=== PATIENT | male | born 1990 | race Hispanic/Latino ===

== ENCOUNTER 2020-08-04 17:39 | Emergency (ER) | payer SELFPAY ==
--- NOTE | 2020-08-04 20:31 | ER ---
Nurse's Notes [facility] Name: Adilson Duarte Jr Age: 30 yrs Sex: Male : 1990 Arrival Date: 08/04/2020 Time: 17:48 Bed 28 Private MD: Diagnosis: Laceration without foreign body of left hand Presentation: 08/04 17:54 Chief complaint: Patient states: Accidentally had screwdriver penetrate webbing of L ll1 hand between 1st and 2nd digits 20 min [employer]SEM[employer]. Bleeding controlled. Puncture wound L hand. Coronavirus screen: Client denies travel out of the [place] in the last 14 days. At this time, the client does not indicate any symptoms associated with coronavirus-19. Ebola Screen: Patient denies travel to an Ebola-affected area in the 21 days before illness onset. Complicating Factors: There are no complicating factors for this patient. Initial Sepsis Screen: Does the patient meet any 2 criteria? No. Patient's initial sepsis screen is negative. Does the patient have a suspected source of infection? Yes: Skin breakdown/wound. Risk Assessment: Do you want to hurt yourself or someone else? Patient reports no desire to harm self or others. Onset of symptoms was August 04, 2020. 17:54 Method Of Arrival: Ambulatory ll1 17:54 Acuity: NEYMAR 4 ll1 Historical: - Allergies: 17:56 Grass Pollen-[place] Fescue, Standard; ll1 - PMHx: 17:56 None; ll1 - PSHx: 17:56 None; ll1 - Immunization history:: Last tetanus immunization: < 5 years ago Flu vaccine is not up to date. - Social history:: Smoking status: Patient denies any tobacco usage or history of. Screenin:48 Abuse screen: Denies threats or abuse. Nutritional screening: No deficits noted. bb Tuberculosis screening: No symptoms or risk factors identified. Fall Risk None identified. Assessment: 20:46 General: Appears in no apparent distress. Behavior is calm, cooperative. Pain: bb Complains of pain in Left first web space. Neuro: Level of Consciousness is awake, alert, obeys commands, Oriented to person, place, time, Appropriate for age. Respiratory: Respiratory effort is even, unlabored, Respiratory pattern is regular. Derm: Skin is pink, warm \T\ dry. Musculoskeletal: Circulation, motion, and sensation intact. Injury Description: Laceration sustained to Left first web space is clean, not bleeding, 2 sutures intact. 20:47 Reassessment: Patient is alert, oriented x 3, equal unlabored respirations, skin bb warm/dry/pink. pt verbalized understanding of and agrees to plan of care discharge instructions given pt ambulated with steady gait to exit. Vital Signs: 17:54 BP 149 / 96; Pulse 73; Resp 17; Temp 97.9; Pulse Ox 96% ; Weight 74.84 kg; Height 5 ft. ll1 11 in. (180.34 cm); Pain 6/10; 20:47 BP 141 / 93; Pulse 67; Resp 16 S; Temp 98.2(O); Pulse Ox 99% on R/A; bb 17:54 Body Mass Index 23.01 (74.84 kg, 180.34 cm) ll1 ED Course: 17:48 Patient arrived in ED. mr 17:55 Triage completed. ll1 17:56 Arm band placed on. ll1 19:38 [facility]C [facility]. kb 19:38 Gucci Rose MD is Attending Physician. kb 20:48 Assist provider with laceration repair on Left first web space that was 2.5 cm. or less bb using sutures. Set up tray. Performed by Donna HERRERA Dressed with band aid, Patient tolerated well. Patient did not have IV access during this emergency room visit. Dressings: Band aid x 1 Left first web space. 20:49 Patient has correct armband on for positive identification. 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 Exp: bb 08/07/2021. Lot #: [id number]. } Route: IM; Site: left deltoid; 20:51 Follow up: Response: No adverse reaction bb Outcome: 20:30 Discharge ordered by . kb 20:51 Discharged to home ambulatory. bb 20:51 Condition: stable 20:51 Discharge instructions given to patient, Instructed on discharge instructions, follow up and referral plans. wound care, Demonstrated understanding of instructions, follow-up care, wound care. 20:52 Patient left the ED. bb Signatures: Donna Uriarte, SHARON ALAN-Sherice Salinas mr Blossom Holden RN RN bb Elijah Cantor RN RN ll1
--- NOTE | 2020-08-04 20:31 | EDPHYS ---
Physician Documentation [facility] Name: Adilson Duarte Jr Age: 30 yrs Sex: Male : 1990 Arrival Date: 08/04/2020 Time: 17:48 Bed 28 Private MD: ED Physician Gucci Rose HPI: 08/04 20:28 This 30 yrs old Male presents to ER via Ambulatory with complaints of kb Laceration To Hand. 20:28 The patient has a laceration related to: working, occurred at work, and there are no kb complicating factors. The injury was accidental. The laceration(s) is(are) located on the Left first web space. Onset: The symptoms/episode began/occurred just prior to arrival. Associated signs and symptoms: The patient has no apparent associated signs or symptoms. The patient has not experienced similar symptoms in the past. The patient has not recently seen a physician. 20:29 Pt tripped and his hand caught the bench but there was a flathead screwdriver on it and kb it went into his hand. Historical: - Allergies: 17:56 Grass Pollen-[place] Fescue, Standard; ll1 - PMHx: 17:56 None; ll1 - PSHx: 17:56 None; ll1 - Immunization history:: Last tetanus immunization: < 5 years ago Flu vaccine is not up to date. - Social history:: Smoking status: Patient denies any tobacco usage or history of. ROS: 20:28 Constitutional: Negative for fever, chills, and weight loss, MS/Extremity: Negative for kb injury and deformity, Neuro: Negative for headache, weakness, numbness, tingling, and seizure. 20:28 Skin: Positive for laceration(s), of the Left first web space. Exam: 20:28 Constitutional: This is a well developed, well nourished patient who is awake, alert, kb and in no acute distress. Head/Face: Normocephalic, atraumatic. Respiratory: Respirations even and unlabored. No increased work of breathing, no retractions or nasal flaring. MS/ Extremity: Pulses equal, no cyanosis. Neurovascular intact. Full, normal range of motion. Neuro: Awake and alert, GCS 15, oriented to person, place, time, and situation. Moves all extremities. Normal gait. 20:28 Skin: injury, laceration(s), the wound is approximately 1 cm(s), of the Left first web space, that can be described as clean, no foreign body, linear, without bleeding. Vital Signs: 17:54 BP 149 / 96; Pulse 73; Resp 17; Temp 97.9; Pulse Ox 96% ; Weight 74.84 kg; Height 5 ft. ll1 11 in. (180.34 cm); Pain 6/10; 20:47 BP 141 / 93; Pulse 67; Resp 16 S; Temp 98.2(O); Pulse Ox 99% on R/A; bb 17:54 Body Mass Index 23.01 (74.84 kg, 180.34 cm) ll1 Laceration: 20:26 Wound Repair of 1cm ( 0.4in ) subcutaneous laceration to Left first web space. Linear kb shaped.. Distal neuro/vascular/tendon intact. Anesthesia: Wound infiltrated with 1 mls of 1% lidocaine. Wound prep: Moderate cleansing with hibiclenz by me, Wound irrigation with saline by me. Skin closed with 2 4-0 Prolene using interrupted sutures and sterile technique. Dressed with bandaid. Patient tolerated well. MDM: 19:38 Patient medically screened. kb 20:26 Data reviewed: vital signs, nurses notes. Data interpreted: Pulse oximetry: on room air kb is 96 %. Interpretation: normal. Counseling: I had a detailed discussion with the patient and/or guardian regarding: the historical points, exam findings, and any diagnostic results supporting the discharge/admit diagnosis, the need for outpatient follow up, a family practitioner, to return to the emergency department if symptoms worsen or persist or if there are any questions or concerns that arise at home. 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 Exp: bb 08/07/2021. Lot #: [id number]. } Route: IM; Site: left deltoid; 20:51 Follow up: Response: No adverse reaction bb Disposition: 22:59 Co-signature as Attending Physician, Gucci Rose MD. rn Disposition: 08/04/20 20:30 Discharged to Home. Impression: Laceration without foreign body of left hand. - Condition is Stable. - Discharge Instructions: Laceration Care, Adult, [id number]. - Medication Reconciliation Form, Thank You Letter, Antibiotic Education, Prescription Opioid Use form. - Follow up: Emergency Department; When: As needed; Reason: Worsening of condition. Follow up: Private Physician; When: 2 - 3 days; Reason: Recheck today's complaints, Continuance of care, Re-evaluation by your physician. Signatures: Donna Uriarte, SHARON ALAN-Blossom Gupta RN RN Gucci Desir MD MD rn Lewis, Lynsay, RN RN ll1 Corrections: (The following items were deleted from the chart) 20:52 20:30 08/04/2020 20:30 Discharged to Home. Impression: Laceration without foreign body bb of left hand. Condition is Stable. Forms are Medication Reconciliation Form, Thank You Letter, Antibiotic Education, Prescription Opioid Use. Follow up: Emergency Department; When: As needed; Reason: Worsening of condition. Follow up: Private Physician; When: 2 - 3 days; Reason: Recheck today's complaints, Continuance of care, Re-evaluation by your physician. kb
[2020-08-04] MEDS ORDERED: LIDOCAINE 1% MPF 30 ML VIAL ONE (20:33)
[2020-08-04] MEDS ORDERED: TETANUS & DIPHTHERIA TOX,ADULT 0.5 ML VIAL ONE ×2 (20:55→20:56)
[2020-08-04 20:59] VITALS: BP 141/93; TEMP 98.2; O2SAT 99
== END 2020-08-04 20:52 | disposition home or self-care (01) ==
LOC: ER 17:39
PROC: 0JQK0ZZ Repair Left Hand Subcutaneous Tissue and Fascia, Open Approach (ICD-10-PCS; principal; 2020-08-04)
DX: S61.412A Laceration without foreign body of left hand, initial encounter (principal); W01.198A Fall on same level from slipping, tripping and stumbling with subsequent striking against other object, initial encounter; Y93.9 Activity, unspecified; Y92.89 Other specified places as the place of occurrence of the external cause; Y99.8 Other external cause status; Z23 Encounter for immunization
CPT/HCPCS: 90471; 90714; 99283